=== PATIENT | male | born 1965 | race Caucasian/White ===

== ENCOUNTER 2021-08-16 17:13 | Emergency (ER) | payer BC, OTHER ==
[~2021-08-16] VITALS: Ht 195.6 cm; Wt 79.1 kg
[~2021-08-16 17:13] MED LIST: CEPH-264 PO; OMEP20CA16 PO; OXYC1TAB19 PO
[2021-08-16] MEDS ORDERED: cloNIDine HCL 0.1 MG TABLET PO ONE (17:30)
--- NOTE | 2021-08-16 17:32 | PHYS DOC ---
Past History Past Surgical History: No Surgical History (DYLAN VIZCARRA DO) Alcohol Use: Rarely (DYLAN VIZCARRA DO) General Adult EDM: Chief Complaint: HYPERTENSION HPI: HPI: 56-year-old male presents with hypertension. The patient was driving home from work when he had a feeling of warmth and feeling hot to come over him. He has not had feelings like this before. As soon as he got home he decided to take his blood pressure and he was in the 180s over 110s. His was very con cerned so she made him come to the hospital. The patient states that his feeling of warmth is subsiding and he feels almost normal at this time. He cannot think of anything that would have triggered this physically or emotionally. He has been taking his beta-maria r blood pressure medicine as prescribed. His blood pressure typically runs low 140s over 90. He denies fever or chills. He has no other specific symptoms or complaints at this time. (DYLAN VIZCARRA DO) Review of Systems: Review of Systems: Constitutional: Denies fever or chills Eyes: Denies change in visual acuity HENT: Denies nasal congestion or sore throat Respiratory: Denies cough or shortness of breath Cardiovascular: Denies chest pain or edema GI: Denies abdominal pain, nausea, vomiting, bloody stools or diarrhea : Denies dysuria Musculoskeletal: Denies back pain or joint pain Integument: Denies rash Neurologic: Denies headache, focal weakness or sensory changes Endocrine: Denies polyuria or polydipsia Lymphatic: Denies swollen glands Psychiatric: Denies depression or anxiety (DYLAN VIZCARRA DO) Current Medications: Current Meds: Current Medications Medications (Trade) Dose Ordered Sig/James Start Time Stop Time Status Last Admin Dose Admin Clonidine HCl (Catapres) 0.1 mg 1X ONCE 08/16/21 17:30 08/16/21 17:31 (DYLAN VIZCARRA DO) Allergies: Allergies: Allergies Coded Allergies Type Severity Reaction Last Updated Verified No Known Drug Allergies 12/13/15 No (DYLAN VIZCARRA DO) Physical Exam: PE: Constitutional: Well developed, well nourished, no acute distress, non-toxic appearance. [] HENT: Normocephalic, atraumatic, bilateral external ears normal, oropharynx moist, no oral exudates, nose normal. [] Eyes: PERRLA, EOMI, conjunctiva normal, no discharge. [] Neck: Normal range of motion, no tenderness, supple, no stridor. [] Cardiovascular: Heart rate regular rhythm, no murmur [] Lungs & Thorax: Bilateral breath sounds clear to auscultation [] Abdomen: Bowel sounds normal, soft, no tenderness, no masses, no pulsatile masses. [] Skin: Warm, dry, no erythema, no rash. [] Back: No tenderness, no CVA tenderness. [] Extremities: No tenderness, no cyanosis, no clubbing, ROM intact, no edema. [] Neurologic: Alert and oriented X 3, normal motor function, normal sensory func tion, no focal deficits noted. [] Psychologic: Affect normal, judgement normal, mood normal. [] (DYLAN VIZCARRA DO) Current Patient Data: Vital Signs: Vital Signs Date Time Temp Pulse Resp B/P (MAP) Pulse Ox O2 Delivery O2 Flow Rate FiO2 08/16/21 17:22 98.2 84 16 167/102 (123) 99 Room Air (DYLAN VIZCARRA DO) EKG: EKG: [] (DYLAN VIZCARRA DO) Radiology/Procedures: Radiology/Procedures: [] (DYLAN VIZCARRA DO) Radiology/Procedures: [place] [address] IMAGING REPORT Signed PATIENT: MELQUIADES SANTIAGO ACCOUNT: [id number] : 1965 LOCATION: ER AGE: 56 SEX: M EXAM STATUS: REG ER ORD. PHYSICIAN: DYLAN VIZCARRA DO REASON: hypertension, pt has heart monitoring device on PROCEDURE: CHEST AP ONLY EXAMINATION: Chest radiograph. VIEWS: Single AP view of the chest COMPARISON: Unavailable INDICATION:56 years, Male, hypertension, patient has heart monitoring device on. FINDINGS: Normal cardiomediastinal silhouette. Heart monitoring device overlies the mediastinum. Scattered left perihilar and bibasilar nodular opacities favoring granulomatous disease. No focal consolidation. No pleural effusion or pneumothorax. No acute osseous process. IMPRESSION: No acute cardiopulmonary process. Electronically signed by: Avi Nix DO (08/16/2021 6:12 PM) [facility] DICTATED AND SIGNED BY: AVI NIX DO DATE: 08/16/211810 CC: DYLAN VIZCARRA DO; ROSITA BAUTISTA MD ~MTH0 0 (MELQUIADES BROWNE MD) Heart Score: C/O Chest Pain: N/A Risk Factors: Risk Factors: DM, Current or recent (<one month) smoker, HTN, HLP, family history of CAD, obesity. Risk Scores: Score 0 - 3: 2.5% MACE over next 6 weeks - Discharge Home Score 4 - 6: 20.3% MACE over next 6 weeks - Admit for Clinical Observation Score 7 - 10: 72.7% MACE over next 6 weeks - Early Invasive Strategies (DYLAN VIZCARRA DO) Course & Med Decision Making: Course & Med Decision Making Pertinent Labs and Imaging studies reviewed. (See chart for details) The patient's work-up is pending at this time. I have ordered 0.1 mg of clonidine. I am signing him out to air pollution analyst at 1800. [] (DYLAN VIZCARRA DO) Course & Med Decision Making See Dr. Vizcarra chart for details prior shift change at 1800 hrs for details. (MELQUIADES BROWNE MD) Dragon Disclaimer: Dragon Disclaimer: This electronic medical record was generated, in whole or in part, using a voice recognition dictation system. (DYLAN VIZCARRA DO) Departure Departure: Impression: Primary Impression: Hypertension Qualified Codes: I10 - Essential (primary) hypertension Referrals: ROSITA BAUTISTA MD (PCP) Patient Instructions: Hypertension, [id number] Attending Signature Attending Signature I have participated in the care of this patient and I have reviewed and agree with all pertinent clinical information above including history, exam, and recommendations. (MELQUIADES BROWNE MD) DYLAN VIZCARRA DO Aug 16, 2021 17:32 MELQUIADES BROWNE MD Aug 16, 2021 18:46
[2021-08-16 18:06] LABS: BASO % 1 % (0-3); EOS # 0.6 x10^3/uL (0.0-0.7); EOS % 9 % (0-3); HEMATOCRIT 43.3 % (39.0-53.0); HEMOGLOBIN 14.6 g/dL (13.0-17.5); LYMPH # 1.6 x10^3/uL (1.0-4.8); LYMPH % 24 % (24-48); MEAN CORPUSCULAR HEMOGLOBIN 33 pg (25-35); MEAN CORPUSCULAR HGB CONC 34 g/dL (31-37); MEAN CORPUSCULAR VOLUME 98 fL (79-100); MONO # 0.5 x10^3/uL (0.0-1.1); MONO % 7 % (0-9); NEUT # 4.1 x10^3uL (1.8-7.7); NEUT % 59 % (31-73); PLATELET COUNT 256 x10^3/uL (140-400); RED BLOOD COUNT 4.44 x10^6/uL (4.30-5.70); RED CELL DISTRIBUTION WIDTH 13.5 % (11.5-14.5); WHITE BLOOD COUNT 6.9 x10^3/uL (4.0-11.0)
[2021-08-16 18:14] LABS: CALCIUM 8.7 mg/dL (8.5-10.1); CREATININE 0.8 mg/dL (0.7-1.3); GFR 99.3; POTASSIUM 3.6 mmol/L (3.5-5.1)
--- NOTE | 2021-08-16 18:14 | RAD ---
EXAMINATION: Chest radiograph. VIEWS: Single AP view of the chest COMPARISON: Unavailable INDICATION:56 years, Male, hypertension, patient has heart monitoring device on. FINDINGS: Normal cardiomediastinal silhouette. Heart monitoring device overlies the mediastinum. Scattered left perihilar and bibasilar nodular opacities favoring granulomatous disease. No focal consolidation. No pleural effusion or pneumothorax. No acute osseous process. IMPRESSION: No acute cardiopulmonary process. Electronically signed by: Ross Nix DO (08/16/2021 6:12 PM) [facility]
[2021-08-16 18:20] LABS: ALBUMIN 3.4 g/dL (3.4-5.0); ALBUMIN/GLOBULIN RATIO 0.9 (1.0-1.7); TOTAL BILIRUBIN 0.1 mg/dL (0.2-1.0); TOTAL PROTEIN 7.2 g/dL (6.4-8.2)
[2021-08-16] MEDS ORDERED: cloNIDine TTS-2 1 PATCH PATCH TD ONE (19:00)
[2021-08-16 19:14] VITALS: BP 160/98
[2021-08-16 19:52] LABS: BACTERIA,URINE 0 /HPF (0-FEW); BILIRUBIN,URINE NEG (NEG); CLARITY,URINE CLEAR; COLOR,URINE YELLOW; GLUCOSE,URINE NEG (NEG); NITRITE,URINE NEG (NEG); RBC,URINE 0 /HPF (0-2); SQUAMOUS EPITHELIAL CELL,UR OCC /LPF; UROBILINOGEN,URINE 0.2 mg/dL (0.2 mg/dL); WBC,URINE 0 /HPF (0-4)
== END 2021-08-16 19:13 | disposition home or self-care (01) ==
LOC: ER 17:13
DX: I10 Essential (primary) hypertension (principal)
CPT/HCPCS: 36415; 71045; 80053; 81001; 85025; 99284-25